=== PATIENT | female | born 2000 | race Caucasian/White ===

== ENCOUNTER → 2023-06-29 09:01 | Outpatient (CLI) | payer MEDICAID, SELFPAY ==
[2023-06-29 10:48] LABS: HCG,Quantitative 17515 mIU/ml (0-5.42)
[2023-06-29 12:14] LABS: Basophils % 0.4 % (0.1-2.0); Eosinophils # 0.1 K/mm3 (0.0-0.4); Eosinophils % 1.3 % (0.1-12.0); Hematocrit 37.7 % (37.0-47.0); Hemoglobin 12.2 g/dL (12.2-16.2); Lymphocytes # 2.3 K/mm3 (0.7-4.5); Lymphocytes % 25.1 % (10-50); Mean Corpuscular HGB Conc 32.3 g/dL (31.8-35.4); Mean Corpuscular Hemoglobin 28.6 pg (27.0-31.2); Mean Corpuscular Volume 88.6 fl (81-99); Mean Platelet Volume 8.2 fl (7.4-10.4); Monocytes # 0.4 K/mm3 (0.1-1.0); Neutrophils # 6.4 K/mm3 (1.8-7.8); Neutrophils % 69.3 % (37.0-80.0); Platelet Count 264 K/mm3 (142-424); Red Blood Count 4.26 M/mm3 (4.20-5.40); Red Cell Distribution Width 13.4 % (11.5-17.5); White Blood Count 9.3 K/mm3 (4.8-10.8)
[2023-06-30 09:20] LABS: Progesterone 29.9 ng/mL (.)
[2023-06-30 10:11] LABS: Rapid Plasma Reagin Ab Titer Non Reactive titer (NonRea<1:1)
[2023-07-02 08:17] LABS: Rubella Antibodies, IgG <0.90 index (Immune >0.99)
[2023-07-02 13:06] LABS: HIV Screen 4th Generation wRfx Non Reactive; Hepatitis B Surface Antigen Negative; Hepatitis C Antibody Non Reactive
== END ==
PROVIDERS: Obstetrics & Gynecology; PCP Nurse Practitioner Family; Visit Provider Obstetrics & Gynecology
DX: Z34.92 Encounter for supervision of normal pregnancy, unspecified, second trimester (principal); Z3A.18 18 weeks gestation of pregnancy
CPT/HCPCS: 36415; 84144; 84702; 85025; 86593; 86703; 86762; 86850; 87086; 87340; 87380; G0432

== ENCOUNTER → 2023-07-02 10:34 | Outpatient (CLI) | payer MEDICAID, SELFPAY ==
--- NOTE | 2023-07-02 10:38 | US_ITS ---
PROCEDURE: US OB /MATERNAL DETAIL CLINICAL INDICATION: dates and anatomy COMPARISON: No exams were available for comparison FINDINGS: Transabdominal sonographic images of the uterus were obtained. From her last menstrual period she is 20 weeks 2 days. Single viable intrauterine gestation. Cephalic position. Placenta: Posteriorplacenta grade 1. There is average amount fluid. The cervix appears satisfactory. Closed and measuring 3.8 cm in length. Complete survey performed and was unremarkable on the submitted images as in PACS. No discrete anomalies identified on survey imaging by technologist. Active fetus. Three-vessel cord with satisfactory umbilical cord insertion. 4- chamber heart noted. [place], LVOT, RVOT, aortic arch appear normal. Survey of brain & ventricles Unremarkable. Cerebellum, cisterna magna, thalamus, choroid plexus appear normal. Face and neck survey unremarkable. Profile, nasion, lips and nose appeared normal. Diaphragm and chest views unremarkable. Abdomen: Both kidneys noted and unremarkable. Stomach and bladder noted and satisfactory. Spine: Survey of the spine satisfactory with no anomalies identified nor imaged. Upper, thoracic, lower spine appear normal. Both arms and legs noted. Amniotic Fluid: Adequate. Maternal adnexa: No significant findings. Measurements: Average ultrasound age 19weeks 5days. Estimated due date by ultrasound age 0211/21/2023. Estimated weight 294g BPD = 20weeks 2days OFD = 19weeks 5days HC = 19weeks 1day AC = 19weeks 4days FL = 19weeks 4days Growth Percentile= 10 Heart Rate = 153bpm Cerebellum = 19weeks 6days Humerus = 19weeks 4days HC/AC is 1.17 CI is 0.82 FL/BPD is 0.65 FL/AC is 0.22 IMPRESSION: 1. Viable fetus in the cephalic presentation with a posterior placenta grade 1. 2. The anatomical scan appears normal. 3. The size and dates are congruent. 4. Her due date based on her last menstrual period is November 17, 2023. Dictated by: Yan Tolbert MD 07/03/2023 08:31 Yan Tolbert MD in [facility] 07/03/2023 08:31
== END ==
PROVIDERS: PCP Nurse Practitioner Family; Visit Provider Obstetrics & Gynecology
DX: Z34.92 Encounter for supervision of normal pregnancy, unspecified, second trimester (principal); Z3A.19 19 weeks gestation of pregnancy
CPT/HCPCS: 76811

== ENCOUNTER → 2023-09-04 10:34 | Outpatient (CLI) | payer MEDICAID, SELFPAY ==
[2023-09-04 11:04] LABS: Basophils # 0.1 K/mm3 (0-0.2); Basophils % 0.4 % (0.1-2.0); Eosinophils # 0.2 K/mm3 (0.0-0.4); Eosinophils % 1.7 % (0.1-12.0); Hematocrit 32.8 % (37.0-47.0); Hemoglobin 11.3 g/dL (12.2-16.2); Lymphocytes # 1.8 K/mm3 (0.7-4.5); Lymphocytes % 15.6 % (10-50); Mean Corpuscular HGB Conc 34.4 g/dL (31.8-35.4); Mean Corpuscular Hemoglobin 29.9 pg (27.0-31.2); Mean Platelet Volume 8.1 fl (7.4-10.4); Monocytes # 0.5 K/mm3 (0.1-1.0); Monocytes % 4.5 % (1.7-9.3); Neutrophils # 8.8 K/mm3 (1.8-7.8); Neutrophils % 77.6 % (37.0-80.0); Platelet Count 261 K/mm3 (142-424); Red Blood Count 3.77 M/mm3 (4.20-5.40); Red Cell Distribution Width 13.7 % (11.5-17.5); White Blood Count 11.4 K/mm3 (4.8-10.8)
[2023-09-04 11:19] LABS: Glucose,Fasting 80 mg/dl (74-100)
[2023-09-04 12:49] LABS: Glucose 1 Hour 105 mg/dL (74-100)
== END ==
PROVIDERS: PCP Nurse Practitioner Family; Visit Provider Obstetrics & Gynecology
DX: Z34.93 Encounter for supervision of normal pregnancy, unspecified, third trimester (principal); Z3A.29 29 weeks gestation of pregnancy
CPT/HCPCS: 36415; 82951; 85025

== ENCOUNTER → 2023-09-19 09:23 | Outpatient (CLI) | payer MEDICAID, SELFPAY ==
--- NOTE | 2023-09-19 09:31 | US_ITS ---
PROCEDURE: US OB FOLLOW UP CLINICAL INDICATION: Growth COMPARISON: FINDINGS: Transabdominal sonographic images of the uterus were obtained. From her established due date she is 31weeks 4days. The following parameters are obtained: Viable fetus in the cephalic presentation with a posterior placenta grade 2 Average ultrasound age is 30weeks 5days. Estimated due date by ultrasound is 11/23/2023. Estimated weight is 3lb 8oz, 1596 grams. The cervix measures 3.8 cm. heart rate: 138bpm bpm. Amniotic fluid index: 13.37cm MVP 5.9 cm. Doppler evaluation of the umbilical artery: SD ratio: 2.69-3.5 Resistive index: 0.72 heart rate: 138bpm bpm. BPD: 30weeks 2days HC: 31weeks 0 days AC: 30weeks 4days FL: 30weeks 5days HC/AC: 1.07 FL/BPD: 0.78 FL/AC: 0.22 Growth percentile 13th No obvious anomalies. Profile, kidneys, stomach, bladder, three-vessel cord, four-chamber view appear normal. IMPRESSION: 1. Viable fetus in the cephalic presentation with posterior placenta grade 2. 2. The fluid is within normal limits with an amniotic fluid index of 13.37 cm, MVP 5.9 cm. 3. The fetus is currently 13th percentile. 4. SD ratio is normal. Dictated by: Yan Tolbert MD 09/19/2023 17:08 Yan Tolbert MD in [facility] 09/19/2023 17:08
== END ==
PROVIDERS: PCP Nurse Practitioner Family; Visit Provider Obstetrics & Gynecology
DX: O36.5930 Maternal care for other known or suspected poor fetal growth, third trimester, not applicable or unspecified (principal); Z3A.31 31 weeks gestation of pregnancy
CPT/HCPCS: 76816